=== PATIENT | female | born 1960 | race Caucasian/White ===

== ENCOUNTER 2016-12-14 19:06 | Emergency (ER) | payer OTHER ==
[~2016-12-14] VITALS: Ht 167.6 cm; Wt 118.0 kg
[~2016-12-14 19:06] MED LIST: ADVAIR 250/501 DISK IH; ALL DAY ALLERGY10 M2 PO; AMLODIPINE BESYL5 MG PO; ANORO ELLIPTA1 EACH IH; ASMANEX TW200 MICRO1 IH; ASPIR-TRIN325 M1 PO; ATIVAN2 MG PO; ATORVASTATIN CA40 MG PO; COLACE100 MG PO; COLESTID1 GM PO; DAILY VALUE1 EACH PO; DESYREL100 MG PO; DITROPAN XL10 MG PO; EPIPEN ADU0.3 MG/0.3 IM; EVZIO0.4 MG/0.4 SC; FLONASE16 G1 BOTH NARES; IMODIUM MS REL1 EACH PO; INSULIN PUMP SCCONT; KEFLEX500 MG PO; LAMICTAL100 MG PO; LAMICTAL25 MG PO; LANTUS 3 M100 UNITS1 SC; LIPITOR40 MG PO; LO-DOSE ASPIRIN81 M1 PO; LOPERAMIDE2 MG PO; LYRICA150 MG PO; LYRICA200 MG PO; MELATIN3 MG PO; MELATONIN10 M2 PO; MEMANTINE HCL10 MG PO; MINIPRESS2 MG PO; MIRAPEX0.5 MG PO; MOTRIN800 MG PO; NAPROSYN500 MG PO; ONDANSETRON HCL4 MG PO; OXYCODONE HCL10 MG PO; OXYCODONE HCL15 MG PO; PERCOCET 10/1 TABLET PO; PROTONIX40 MG PO; PROVENTIL HFA6.7 GM IH; PROVENTIL2.5 MG/3 M IH; SINGULAIR10 MG PO; SLEEP AID25 M2 PO; SPIRIVA RESPIMAT4 GM IH; TOLTERODINE TART4 MG PO; TRILAFON2 MG PO; TROKENDI XR100 MG PO; TROKENDI XR200 MG PO; VALIUM5 MG PO; VITAMIN D31000 UNIT PO; ZANAFLEX2 MG PO; ZANAFLEX4 M1 PO; ZUPLENZ4 MG PO
[2016-12-14 20:32] LABS: HEMATOCRIT 35.1 % (36.0-46.0); MCH 28.3 PG (29.0-34.0); MCHC 32.2 G/DL (30.0-36.0); PLATELET COUNT 202 K/uL (156-360); RBC DIS.WIDTH-CV 15.8 % (11.8-14.6); RED BLOOD COUNT 3.99 M/uL (3.80-5.20)
[2016-12-14 20:44] LABS: CHLORIDE 104 mEq/L (99-109); POTASSIUM 3.7 mEq/L (3.7-5.4); SODIUM 141 mEq/L (136-147)
[2016-12-14 20:45] LABS: GLUCOSE 118 mg/dL (70-99)
[2016-12-14 20:47] LABS: ANION GAP 9 MEQ/L (2-14)
[2016-12-14 20:49] LABS: GFR ESTIMATE (CALCULATED) 55 mL/min/
[2016-12-14 20:50] LABS: UREA NITROGEN (BUN) 14 mg/dL (9-23)
[2016-12-14 20:59] LABS: INFLUENZA A VIRAL ANTIGEN NEGATIVE; INFLUENZA B VIRAL ANTIGEN NEGATIVE
[2016-12-14] MEDS ORDERED: TESSALON PERLE100 MG PO (21:17)
[2016-12-14 22:01] VITALS: BP 103/63
== END 2016-12-14 22:17 | disposition home or self-care (01) ==
LOC: EME 19:06
PROVIDERS: Emergency Medicine
DX: J06.9 Acute upper respiratory infection, unspecified (principal); J44.9 Chronic obstructive pulmonary disease, unspecified; E11.9 Type 2 diabetes mellitus without complications; Z96.41 Presence of insulin pump (external) (internal); Z79.4 Long term (current) use of insulin; I10 Essential (primary) hypertension; K21.9 Gastro-esophageal reflux disease without esophagitis; M79.7 Fibromyalgia; Z79.82 Long term (current) use of aspirin; F17.200 Nicotine dependence, unspecified, uncomplicated
CPT/HCPCS: 71020; 80048; 85027; 87502; 99281; 99284; J2405